=== PATIENT | male | born 1995 | race African-American/Black ===

== ENCOUNTER 2016-06-21 09:04 | Emergency (ER) | payer OTHER ==
[~2016-06-21] VITALS: Ht 190.5 cm; Wt 81.3 kg
[~2016-06-21 09:04] MED LIST: ENDOCET 5-3251 EACH PO; LEVAQUIN750 MG PO; LOVENOX40 MG/0.4 SC; MOTRIN800 MG PO; OXYCONTIN10 MG PO; PERCOCET 5/31 TABLET PO; PROVENTIL HFA6.7 GM IH; SENNA-TIME S T1 EACH PO; VITAMIN D5000 INTUN PO; Vicodin,Norco 5/325 PO
[2016-06-21 09:45] LABS: HEMATOCRIT 46.5 % (38.0-50.0); MCH 26.8 PG (29.0-34.0); MCHC 33.1 G/DL (30.0-36.0); MEAN PLAT.VOLUME 11.9 uM^3 (9.0-12.4); PLATELET COUNT 128 K/uL (156-360); RBC DIS.WIDTH-CV 12.3 % (11.8-14.6); RBC DIS.WIDTH-SD 36.3 % (39-53); RED BLOOD COUNT 5.74 M/uL (4.00-5.50); WHITE BLOOD COUNT 3.7 K/uL (4.1-10.2)
[2016-06-21 09:55] LABS: CHLORIDE 107 mEq/L (99-109); POTASSIUM 3.8 mEq/L (3.7-5.4); SODIUM 140 mEq/L (136-147)
[2016-06-21 09:57] LABS: GLUCOSE 93 mg/dL (70-99)
[2016-06-21 09:59] LABS: ANION GAP 8 MEQ/L (2-14)
[2016-06-21 10:01] LABS: GFR ESTIMATE (CALCULATED) > 59 mL/min/
[2016-06-21 10:02] LABS: UREA NITROGEN (BUN) 11 mg/dL (9-23)
[2016-06-21 11:25] LABS: INFLUENZA A VIRAL ANTIGEN NEGATIVE; INFLUENZA B VIRAL ANTIGEN NEGATIVE
[2016-06-21] MEDS ORDERED: IBUPROFEN800 MG PO (11:36)
[2016-06-21 11:46] VITALS: BP 144/67
== END 2016-06-21 11:47 | disposition home or self-care (01) ==
LOC: EME 09:04
PROVIDERS: Nurse Practitioner Family
DX: J06.9 Acute upper respiratory infection, unspecified (principal); F17.210 Nicotine dependence, cigarettes, uncomplicated; Z71.6 Tobacco abuse counseling
CPT/HCPCS: 71020; 80048; 85027; 87502; 99281; 99284; J1885

== ENCOUNTER 2016-08-28 22:01 | Emergency (ER) | payer OTHER ==
[~2016-08-28] VITALS: Ht 193 cm; Wt 80.7 kg
[~2016-08-28 22:01] MED LIST changes: +IBUPROFEN800 MG PO
[2016-08-29] MEDS ORDERED: NAPROSYN500 MG PO (00:26)
[2016-08-29 00:37] VITALS: BP 116/62
== END 2016-08-29 00:37 | disposition home or self-care (01) ==
LOC: EME 22:01
PROC: 0RSXXZZ Reposition Left Finger Phalangeal Joint, External Approach (ICD-10-PCS; principal; 2016-08-28)
DX: S63.287A Dislocation of proximal interphalangeal joint of left little finger, initial encounter (principal); W22.8XXA Striking against or struck by other objects, initial encounter; Y93.67 Activity, basketball; F17.200 Nicotine dependence, unspecified, uncomplicated; Z87.01 Personal history of pneumonia (recurrent)
CPT/HCPCS: 73140; 99281; 99284

== ENCOUNTER 2016-08-31 18:37 | Emergency (ER) | payer OTHER ==
[~2016-08-31] VITALS: Ht 193 cm; Wt 81.1 kg
[~2016-08-31 18:37] MED LIST changes: +NAPROSYN500 MG PO
[2016-08-31 20:11] LABS: EOSINOPHIL (%) 0.4 % (0-5); HEMATOCRIT 45.6 % (38.0-50.0); IMMATURE GRANULOCYTE (%) 0.4 % (0.0-0.7); INSTRUMENT ABS NEUTROPHIL CT 6.2 K/uL; LYMPHOCYTE COUNT 0.7 K/uL (1.0-2.8); MCH 26.2 PG (29.0-34.0); MCHC 31.8 G/DL (30.0-36.0); MCV 82.5 FL (86-99); MEAN PLAT.VOLUME 12.3 uM^3 (9.0-12.4); MONOCYTE COUNT 0.9 K/uL (0-0.8); NEUTROPHIL (%) 79.3 % (45-76); NEUTROPHIL COUNT 6.2 K/uL (1.8-6.4); PLATELET COUNT 134 K/uL (156-360); RBC DIS.WIDTH-CV 13.2 % (11.8-14.6); RBC DIS.WIDTH-SD 39.8 % (39-53); RED BLOOD COUNT 5.53 M/uL (4.00-5.50); WHITE BLOOD COUNT 7.8 K/uL (4.1-10.2)
[2016-08-31 20:21] LABS: CHLORIDE 110 mEq/L (99-109); POTASSIUM 3.9 mEq/L (3.7-5.4); SODIUM 141 mEq/L (136-147)
[2016-08-31 20:23] LABS: GLUCOSE 77 mg/dL (70-99)
[2016-08-31 20:24] LABS: ANION GAP 12 MEQ/L (2-14)
[2016-08-31 20:27] LABS: GFR ESTIMATE (CALCULATED) > 59 mL/min/
[2016-08-31 20:28] LABS: UREA NITROGEN (BUN) 9 mg/dL (9-23)
[2016-08-31] MEDS ORDERED: TESSALON PERLE100 MG PO (21:22)
[2016-08-31 21:44] VITALS: BP 130/69
== END 2016-08-31 21:45 | disposition home or self-care (01) ==
LOC: EME 18:37 → RME 18:37
DX: B34.9 Viral infection, unspecified (principal); J40 Bronchitis, not specified as acute or chronic; F17.200 Nicotine dependence, unspecified, uncomplicated
CPT/HCPCS: 71020; 80048; 81003; 83605; 85025; 99281; 99285; J1885; J7030